=== PATIENT | female | born 1990 | race Hispanic/Latino ===

== ENCOUNTER 2025-03-03 21:38 | Emergency (ER) | payer OTHER, SELFPAY | END 2025-03-03 22:20 | LOC: CSHERS 21:38 | DX: O9A.212 Injury, poisoning and certain other consequences of external causes complicating pregnancy, second trimester (principal); T58.91XA Toxic effect of carbon monoxide from unspecified source, accidental (unintentional), initial encounter; Z3A.19 19 weeks gestation of pregnancy | CPT/HCPCS: 99283 ==